=== PATIENT | male | born 1940 | race Caucasian/White ===

== ENCOUNTER 2020-06-01 00:06 | Outpatient (CLI) | payer MEDICARE, OTHER | END 2020-06-01 00:07 | disposition critical access hospital (66) | LOC: EMS 00:06 | PROVIDERS: ATTEND Surgery | DX: R07.81 Pleurodynia (principal); W01.0XXA Fall on same level from slipping, tripping and stumbling without subsequent striking against object, initial encounter | CPT/HCPCS: A0425; A0427 ==

== ENCOUNTER 2020-06-01 00:38 | Emergency (ER) | payer MEDICARE, OTHER ==
--- NOTE | 2020-06-01 00:48 | ED Physician Documentation ---
PD HPI CHEST PAIN - Stated complaint Stated Complaint: RT RIB PX - History obtained from History obtained from: Patient, Family, EMS - History of Present Illness Timing - onset: How many days ago (3) Timing - details: Abrupt onset Pain level now: 2 Quality: Pain Location: Right chest Radiation: Other (no radiation) Improved by: Rest Worsened by: Inspiration, Movement, Palpation Associated symptoms: No: Shortness of air, Diaphoresis, Nausea, Vomiting, Feeling faint / dizzy, General Weakness, Palpitations, Cough Recently seen: Not recently seen - Additional information Additional information: BIBA. c/o right anterolateral chest wall pain. 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 It is worse with palpation, movement, and deep breath in. Pain has been controlled with tylenol and aleve. 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 Patient took one tablet of tramadol that he had left over from recent hip surgery rx and has had some relief with this medication Review of Systems Constitutional: denies: Fever Cardiac: reports: Chest pain / pressure (chest wall pain) Respiratory: denies: Dyspnea, Cough, Hemoptysis, Wheezing GI: denies: Abdominal Pain, Nausea, Vomiting Skin: reports: Reviewed and negative Musculoskeletal: reports: Reviewed and negative Neurologic: denies: Headache, Head injury, LOC PD PAST MEDICAL HISTORY - Past Medical History Past Medical History: Yes Cardiovascular: Hypertension - Past Surgical History Past Surgical History: Yes Ortho: Hip replacement - Present Medications Home Medications: Ambulatory Orders Medication Instructions Recorded Confirmed traMADol [Ultram] 50 - 100 mg PO Q6H PRN #14 tablet 06/01/20 - Allergies Allergies/Adverse Reactions: Allergies Allergy/AdvReac Type Severity Reaction Status Date / Time No Known Drug Allergies Allergy Verified 06/01/20 00:50 - Living Situation Living Situation: reports: With family Living Arrangement: reports: At home PD ED PE NORMAL - Vitals Vital signs reviewed: Yes - General General: Alert and oriented X 3, No acute distress, Well developed/nourished - HEENT HEENT: Atraumatic - Neck Neck: No bony TTP - Cardiac Cardiac: RRR, No murmur - Respiratory Respiratory: No respiratory distress, Clear bilaterally - Abdomen Abdomen: Soft, Non tender - Back Back: No CVA TTP, No spinal TTP - Derm Derm: Normal color, Warm and dry - Neuro Neuro: Alert and oriented X 3 PD ED PE EXPANDED - Visual Whole body visual: 1 - tenderness (TTP without crepitus, swelling, echymosis) Results - Vitals Vitals: Vital Signs - 24 hr 06/01/20 06/01/20 06/01/20 00:47 01:00 01:09 Temperature 36.5 C Heart Rate 73 73 69 Respiratory 17 16 19 Rate Blood Pressure 171/93 H 171/93 H O2 Saturation 98 97 06/01/20 06/01/20 06/01/20 01:58 01:59 02:55 Temperature Heart Rate 66 Respiratory 16 17 Rate Blood Pressure 178/96 H O2 Saturation 97 06/01/20 06/01/20 06/01/20 02:59 03:29 03:31 Temperature Heart Rate 71 Respiratory 17 18 17 Rate Blood Pressure 166/88 H O2 Saturation 97 Oxygen O2 Source Room air - Labs Labs: Laboratory Tests 06/01/20 06/01/20 01:05 01:05 WBC 7.2 RBC 4.41 L Hgb 11.1 L Hct 36.4 L MCV 82.5 MCH 25.2 L MCHC 30.5 L RDW 19.3 H Plt Count 241 MPV 10.4 Neut # (Auto) 4.4 Lymph # (Auto) 1.2 L Ashley # (Auto) 1.0 Eos # (Auto) 0.5 Baso # (Auto) 0.1 Absolute Nucleated RBC 0.00 Nucleated RBC % 0.0 Sodium 137 Potassium 3.8 Chloride 104 Carbon Dioxide 27 Anion Gap 6.0 BUN 21 H Creatinine 0.6 Estimated GFR (MDRD) 129 Glucose 105 H Calcium 8.4 L Total Bilirubin 0.5 AST 22 ALT 19 Alkaline Phosphatase 69 Total Protein 6.2 L Albumin 3.7 Globulin 2.5 Albumin/Globulin Ratio 1.5 Lipase 29 - Rads (name of study) CT chest w/ IV contrast Radiology: Prelim report reviewed, See rad report PD MEDICAL DECISION MAKING - ED course Complexity details: reviewed results, re-evaluated patient, considered differential, d/w patient, d/w family ED course: CT interpreted by radiologist as "acute fractures of the lateral aspects of the right fourth, fifth, sixth and seventh ribs are suspected, nondisplaced. No adjacent pulmonary contusion. No pneumothorax." Results d/w patient and spouse. I explained that based on his age and the number of rib fractures, admission would be advisable for pain control and pulmonary toilet to minimize potential complications of rib fractures. Patient and spouse wish to be discharged instead. This is reasonable given that the injury was three days ago (worse tonight when trying to have BM but no new injury), that the pain was improved with tramadol and he is able to get out of bed and into wheelchair in ED with minimal assistance, that the rib fractures are nondisplaced, his vital signs (including pulse ox) are stable (on room air), and he has no underlying pulmonary history such as asthma or COPD. Patient says he thinks he has few tramadol left at home, thus provided with rx for same and given one tablet prior to discharge. Encouraged to return if worse, and f/u with PMD next available appointment Departure - Departure Disposition: 01 Home, Self Care Clinical Impression: Fracture of rib Qualifiers: Encounter type: initial encounter Rib fracture type: multiple ribs Fracture type: closed Laterality: right Qualified Code(s): S22.41XA - Multiple fractures of ribs, right side, initial encounter for closed fracture Condition: Good Instructions: ED Fx Rib Follow-Up: Dwight Avendano MD [Primary Care Provider] - Within 3 Days Prescriptions: traMADol [Ultram] 50 - 100 mg PO Q6H PRN #14 tablet PRN Reason: Pain Discharge Date/Time: 06/01/20 03:45
[2020-06-01] MEDS ORDERED: IOVERSOL 320 100 ML VIAL IVP ONE ×2 (01:02→01:59)
[2020-06-01 01:13] LABS: BASOPHILS # (AUTO) 0.1 10^3/uL (0.0-0.1); BASOPHILS % (AUTO) 0.7 %; EOSINOPHILS # (AUTO) 0.5 10^3/uL (0.0-0.7); EOSINOPHILS % (AUTO) 6.8 %; HGB - HEMOGLOBIN 11.1 g/dL (14.0-18.0); LYMPHOCYTES # (AUTO) 1.2 10^3/uL (1.5-3.5); LYMPHOCYTES % (AUTO) 17.2 %; MEAN CORPUSCULAR HEMOGLOBIN 25.2 pg (27.0-31.0); MEAN CORPUSCULAR HGB CONC 30.5 g/dL (32.0-36.0); MEAN CORPUSCULAR VOLUME 82.5 fL (80.0-94.0); MEAN PLATELET VOLUME 10.4 fL (7.4-11.4); MONOCYTES % (AUTO) 14.5 %; NEUTROPHILS # (AUTO) 4.4 10^3/uL (1.5-6.6); NEUTROPHILS % (AUTO) 60.7 %; PLT - PLATELET COUNT 241 10^3/uL (130-450); RED BLOOD COUNT 4.41 10^6/uL (4.70-6.10); RED CELL DISTRIBUTION WIDTH 19.3 % (12.0-15.0); WHITE BLOOD COUNT 7.2 x10^3/uL (4.8-10.8)
[2020-06-01 01:26] LABS: ALBUMIN 3.7 g/dL (3.2-5.5); ALBUMIN/GLOBULIN RATIO 1.5 (1.0-2.2); BILIRUBIN,TOTAL 0.5 mg/dL (0.2-1.0); CALCIUM 8.4 mg/dL (8.5-10.3); CREATININE 0.6 mg/dL (0.6-1.2); TOTAL PROTEIN 6.2 g/dL (6.7-8.2)
[2020-06-01 02:59] VITALS: BP 166/88
[2020-06-01] MEDS ORDERED: traMADol 50 MG TABLET PO STA (03:14)
--- NOTE | 2020-06-01 08:10 | CT Report ---
PROCEDURE: CHEST W INDICATIONS: right chest pain after fall CONTRAST: IV CONTRAST: Optiray 320 ml: 80 PO CONTRAST: *NO PO CONTRAST TECHNIQUE: After the administration of intravenous contrast, 5 mm thick sections acquired from the pulmonary api reggie to the posterior costophrenic angles. 7 mm thick coronal MIP reformats were acquired. For radia tion dose reduction, the following was used: automated exposure control, adjustment of mA and/or kV according to patient size. COMPARISON: None. FINDINGS: Image quality: Excellent. Lungs and pleura: No acute air space opacities. No pleural effusions or pneumothorax. Central and peripheral airways are patent and normal in caliber. Mediastinum: Heart size is normal. No pericardial effusion. No mediastinal or hilar adenopathy by size criteria. Thoracic aorta and central pulmonary arteries are normal in size. Esophagus is charmaine l in caliber. No hiatal hernia. Bones and chest wall: Nondisplaced fractures of the lateral right third, fourth, fifth, and sixth rib s. No suspicious bony lesions. No vertebral body compression fractures. No axillary or supraclavicu lar adenopathy by size criteria. Thyroid gland is unremarkable. Abdomen: Bilateral adrenal hyperplasia. Liver, spleen, and visualized portions of the pancreas are un remarkable. Visualized portions of the kidneys are unremarkable. IMPRESSION: Nondisplaced fractures of the right third, fourth, fifth, and sixth ribs with no underlying pneumotho rax or acute pulmonary process. A preliminary report with the above findings was provided at the time of the study by [facility]. Reviewed by: Robbi Perez MD on 06/01/2020 8:08 AM PDT Approved by: Robbi Perez MD on 06/01/2020 8:08 AM PDT Station ID: [id number]
== END 2020-06-01 03:45 | disposition home or self-care (01) ==
LOC: EDUNIT# → ED 00:38
DX: S22.41XA Multiple fractures of ribs, right side, initial encounter for closed fracture (principal); W18.39XA Other fall on same level, initial encounter; Y93.K9 Activity, other involving animal care; I10 Essential (primary) hypertension
CPT/HCPCS: 36415; 71260; 80053; 83690; 85025; 99284; A9270; Q9967

== ENCOUNTER 2020-09-26 10:51 | Outpatient (CLI) | payer MEDICARE, OTHER ==
[2020-09-26 18:32] LABS: BASOPHILS # (AUTO) 0.1 10^3/uL (0.0-0.1); BASOPHILS % (AUTO) 0.7 %; EOSINOPHILS # (AUTO) 0.4 10^3/uL (0.0-0.7); EOSINOPHILS % (AUTO) 5.2 %; HGB - HEMOGLOBIN 10.5 g/dL (14.0-18.0); LYMPHOCYTES # (AUTO) 1.9 10^3/uL (1.5-3.5); LYMPHOCYTES % (AUTO) 27.4 %; MEAN CORPUSCULAR HEMOGLOBIN 24.6 pg (27.0-31.0); MEAN CORPUSCULAR HGB CONC 29.7 g/dL (32.0-36.0); MEAN CORPUSCULAR VOLUME 82.9 fL (80.0-94.0); MEAN PLATELET VOLUME 11.4 fL (7.4-11.4); MONOCYTES # (AUTO) 0.6 10^3/uL (0.0-1.0); MONOCYTES % (AUTO) 9.4 %; NEUTROPHILS # (AUTO) 3.9 10^3/uL (1.5-6.6); PLT - PLATELET COUNT 273 10^3/uL (130-450); RED BLOOD COUNT 4.26 10^6/uL (4.70-6.10); RED CELL DISTRIBUTION WIDTH 16.8 % (12.0-15.0); WHITE BLOOD COUNT 6.8 x10^3/uL (4.8-10.8)
[2020-09-26 18:50] LABS: ALBUMIN 3.8 g/dL (3.2-5.5); ALBUMIN/GLOBULIN RATIO 1.7 (1.0-2.2); ALKALINE PHOSPHATASE 56 IU/L (42-121); ALT ALANINE AMINOTRANSFERASE 21 IU/L (10-60); AST ASPARTATE AMINOTRANSFERASE 27 IU/L (10-42); BILIRUBIN,TOTAL 0.7 mg/dL (0.2-1.0); BUN - BLOOD UREA NITROGEN 16 mg/dL (6-20); CALCIUM 8.6 mg/dL (8.5-10.3); CARBON DIOXIDE - CO2 27 mmol/L (21-32); CHLORIDE 104 mmol/L (101-111); CHOL/HDL RATIO 1.9 (<5.0); CHOLESTEROL 90 mg/dL; CREATININE 0.6 mg/dL (0.6-1.2); GLUCOSE 86 mg/dL (70-100); HDL CHOLESTEROL 48 mg/dL; LDL CHOLESTEROL,CALCULATED 33 mg/dL; LDL/HDL RATIO 0.7 (<3.6); SODIUM 140 mmol/L (135-145); VLDL CHOLESTEROL 9 mg/dL
== END 2020-09-26 10:52 | disposition home or self-care (01) ==
LOC: LAB.N 10:51
PROVIDERS: ATTEND Family Medicine
DX: G40.909 Epilepsy, unspecified, not intractable, without status epilepticus (principal); I35.8 Other nonrheumatic aortic valve disorders; N40.0 Benign prostatic hyperplasia without lower urinary tract symptoms; I10 Essential (primary) hypertension; Z86.73 Personal history of transient ischemic attack (TIA), and cerebral infarction without residual deficits
CPT/HCPCS: 36415; 80053; 80061; 84443; 85025; G0103; 83721; 84153

== ENCOUNTER 2020-11-06 09:02 | Outpatient (CLI) | payer MEDICARE, OTHER ==
--- NOTE | 2020-11-06 10:09 | XRAY Report ---
PROCEDURE: Chest 2 View X-Ray INDICATIONS: CARDIAC MURMUR TECHNIQUE: 2 view(s) of the chest. COMPARISON: None. FINDINGS: Surgical changes and devices: None. Lungs and pleura: There is blunting of left costophrenic angles suggestive of trace left pleural effu see. Left basilar atelectasis/small infiltrate is also likely present. Hyperinflation is noted. No g ross pneumothorax. Mediastinum: Mediastinal contours are normal. Heart size is normal. Bones and chest wall: No suspicious bony abnormalities. Soft tissues appear unremarkable. IMPRESSION: Trace left pleural effusion and left basilar atelectasis/small infiltrate. No pneumothor ax. COPD. Reviewed by: Toby Pinon MD on 11/06/2020 10:08 AM [facility] Approved by: Toby Pinon MD on 11/06/2020 10:08 AM [facility] Station ID: [id number]
== END 2020-11-06 09:03 | disposition home or self-care (01) ==
LOC: DI.WCP 09:02
PROVIDERS: ATTEND Family Medicine
DX: J90 Pleural effusion, not elsewhere classified (principal); R91.8 Other nonspecific abnormal finding of lung field

== ENCOUNTER 2020-11-28 07:38 | Outpatient (CLI) | payer MEDICARE, OTHER | END 2020-11-28 07:39 | disposition home or self-care (01) | LOC: DI 07:38 | PROVIDERS: ATTEND Family Medicine | DX: I34.0 Nonrheumatic mitral (valve) insufficiency (principal); I35.8 Other nonrheumatic aortic valve disorders | CPT/HCPCS: 93306 ==

== ENCOUNTER 2021-01-30 11:48 | Outpatient (CLI) | payer MEDICARE, OTHER ==
[2021-01-30 18:10] LABS: BASOPHILS % (AUTO) 0.6 %; EOSINOPHILS # (AUTO) 0.5 10^3/uL (0.0-0.7); EOSINOPHILS % (AUTO) 7.7 %; HCT - HEMATOCRIT 28.5 % (42.0-52.0); HGB - HEMOGLOBIN 8.5 g/dL (14.0-18.0); LYMPHOCYTES # (AUTO) 1.2 10^3/uL (1.5-3.5); LYMPHOCYTES % (AUTO) 19.6 %; MEAN CORPUSCULAR HEMOGLOBIN 21.1 pg (27.0-31.0); MEAN CORPUSCULAR HGB CONC 29.8 g/dL (32.0-36.0); MEAN CORPUSCULAR VOLUME 70.7 fL (80.0-94.0); MONOCYTES # (AUTO) 0.7 10^3/uL (0.0-1.0); MONOCYTES % (AUTO) 11.3 %; NEUTROPHILS # (AUTO) 3.8 10^3/uL (1.5-6.6); NEUTROPHILS % (AUTO) 60.6 %; PLT - PLATELET COUNT 221 10^3/uL (130-450); RED BLOOD COUNT 4.03 10^6/uL (4.70-6.10); RED CELL DISTRIBUTION WIDTH 23.1 % (12.0-15.0); WHITE BLOOD COUNT 6.3 x10^3/uL (4.8-10.8)
[2021-01-30 18:15] LABS: SLIDE REVIEW? Indicated
[2021-01-30 18:33] LABS: ALBUMIN 3.3 g/dL (3.2-5.5); ALBUMIN/GLOBULIN RATIO 1.7 (1.0-2.2); BILIRUBIN,TOTAL 0.7 mg/dL (0.2-1.0); CALCIUM 8.1 mg/dL (8.5-10.3); CREATININE 0.7 mg/dL (0.6-1.2); POTASSIUM 3.3 mmol/L (3.5-5.0); TOTAL PROTEIN 5.3 g/dL (6.7-8.2)
[2021-01-30 18:41] LABS: PLATELET ESTIMATE, MANUAL NORMAL (130-450,000) (NORMAL); PLATELET MORPHOLOGY NORMAL APPEARANCE (NORMAL); RBC MORPHOLOGY (MULTIPLE) 1+ ANISOCYTOSIS (NORMAL); WBC MORPHOLOGY (MULTIPLE) NORMAL APPEARANCE (NORMAL)
== END 2021-01-30 23:59 | disposition home or self-care (01) ==
LOC: LAB.WCP 11:48
PROVIDERS: ATTEND Nurse Practitioner
DX: R60.9 Edema, unspecified (principal); I35.8 Other nonrheumatic aortic valve disorders; I10 Essential (primary) hypertension
CPT/HCPCS: 36415; 80053; 83880; 85025

== ENCOUNTER 2021-02-20 08:00 | Outpatient (CLI) | payer MEDICARE, OTHER ==
[2021-02-20 18:28] LABS: FERRITIN 10.5 ng/mL (23.9-336.2)
[2021-02-20 19:11] LABS: % IRON SATURATION 57 % (20-50); IRON 193 ug/dL (45-182); TOTAL IRON BINDING CAPACITY 339 ug/dL (250-450); TRANSFERRIN 242 mg/dL (180-329)
== END 2021-02-20 23:59 | disposition home or self-care (01) ==
LOC: LAB.WCP 08:00
PROVIDERS: ATTEND Family Medicine
DX: E53.8 Deficiency of other specified B group vitamins (principal); D50.8 Other iron deficiency anemias; I50.9 Heart failure, unspecified
CPT/HCPCS: 36415; 82607; 82728; 82746; 83540; 84466

== ENCOUNTER 2021-05-01 14:10 | Outpatient (CLI) | payer MEDICARE, OTHER ==
[2021-05-01 18:04] LABS: BASOPHILS # (AUTO) 0.1 10^3/uL (0.0-0.1); BASOPHILS % (AUTO) 0.8 %; EOSINOPHILS # (AUTO) 0.4 10^3/uL (0.0-0.7); EOSINOPHILS % (AUTO) 6.8 %; HCT - HEMATOCRIT 33.4 % (42.0-52.0); HGB - HEMOGLOBIN 10.3 g/dL (14.0-18.0); LYMPHOCYTES # (AUTO) 1.5 10^3/uL (1.5-3.5); LYMPHOCYTES % (AUTO) 23.1 %; MEAN CORPUSCULAR HEMOGLOBIN 26.2 pg (27.0-31.0); MEAN CORPUSCULAR HGB CONC 30.8 g/dL (32.0-36.0); MEAN PLATELET VOLUME 11.5 fL (7.4-11.4); MONOCYTES # (AUTO) 0.6 10^3/uL (0.0-1.0); MONOCYTES % (AUTO) 9.1 %; NEUTROPHILS # (AUTO) 3.9 10^3/uL (1.5-6.6); PLT - PLATELET COUNT 213 10^3/uL (130-450); RED BLOOD COUNT 3.93 10^6/uL (4.70-6.10); RED CELL DISTRIBUTION WIDTH 19.9 % (12.0-15.0); WHITE BLOOD COUNT 6.5 x10^3/uL (4.8-10.8)
[2021-05-01 18:11] LABS: ALBUMIN 3.5 g/dL (3.2-5.5); ALBUMIN/GLOBULIN RATIO 1.5 (1.0-2.2); BILIRUBIN,TOTAL 0.6 mg/dL (0.2-1.0); CALCIUM 8.1 mg/dL (8.5-10.3); CREATININE 0.8 mg/dL (0.6-1.2); POTASSIUM 3.7 mmol/L (3.5-5.0); TOTAL PROTEIN 5.9 g/dL (6.7-8.2)
[2021-05-01 18:33] LABS: THYROID STIMULATING HORMONE 3.72 uIU/mL (0.34-5.60)
== END 2021-05-01 23:59 | disposition home or self-care (01) ==
LOC: LAB.WCP 14:10
PROVIDERS: ATTEND Physician Assistant Medical
DX: Z00.00 Encounter for general adult medical examination without abnormal findings (principal); I50.9 Heart failure, unspecified; D64.9 Anemia, unspecified
CPT/HCPCS: 36415; 80053; 84443; 85025